=== PATIENT | female | born 1965 | race Caucasian/White ===

== ENCOUNTER 2018-09-11 19:11 | Emergency (ER) | payer OTHER ==
[~2018-09-11] VITALS: Ht 160 cm; Wt 110.7 kg
[2018-09-11 19:28] VITALS: Ht 160 cm; Wt 110.7 kg
[2018-09-11 21:19] VITALS: BP 152/82
== END 2018-09-11 21:19 | disposition home or self-care (01) ==
LOC: ED 19:11
DX: S93.401A Sprain of unspecified ligament of right ankle, initial encounter (principal); X58.XXXA Exposure to other specified factors, initial encounter; Y93.89 Activity, other specified; Y92.89 Other specified places as the place of occurrence of the external cause; Y99.8 Other external cause status